=== PATIENT | female | born 1995 | race Hispanic/Latino ===

== ENCOUNTER 2019-12-14 11:34 | Observation (INO) | payer OTHER, MEDICAID | END 2019-12-14 12:53 | disposition home or self-care (01) | LOC: EDH 11:34 → LDH 11:35 | PROVIDERS: ADMIT Obstetrics & Gynecology; ATTEND Obstetrics & Gynecology | DX: O26.893 Other specified pregnancy related conditions, third trimester (principal); Z3A.33 33 weeks gestation of pregnancy | CPT/HCPCS: 99284; G0378 ==

== ENCOUNTER 2020-01-23 16:28 | Inpatient (IN) | payer OTHER, MEDICAID ==
[~2020-01-23] VITALS: Ht 167.6 cm; Wt 124.7 kg
[2020-01-23] MEDS ORDERED: LACTATED RINGERS 1000ML 1,000 ML IV PRN (17:59)
[2020-01-23] MEDS ORDERED: NALOXONE HCL 0.4 MG/1 ML ML IV PRN (18:00)
[2020-01-23] MEDS ORDERED: LACTATED RINGERS 500 ML 500 ML IV PRN (18:00)
[2020-01-23] MEDS ORDERED: EPHEDRINE SULFATE 50 MG/ML AMPULE IVP PRN (18:00)
[2020-01-23] MEDS ORDERED: AMPICILLIN 2GM+NS 100ML 100 ML IV SCH (18:00)
[2020-01-23] MEDS ORDERED: ROPIVACAINE 0.2% 100ML VIAL 100 ML EP SCH (18:00)
[2020-01-23 18:48] LABS: HEMATOCRIT 37.9 % (36-48); MEAN CORPUSCULAR HEMOGLOBIN 26.2 pg (27.0-33.0); MEAN CORPUSCULAR HGB CONC 32.2 g/dL (32.0-36.0); MEAN CORPUSCULAR VOLUME 81.3 fL (79-99); RED BLOOD CELL COUNT(AUTO) 4.66 MIL/uL (4.00-5.50); RED CELL DISTRIBUTION WIDTH 17.2 % (11.0-15.5); WHITE BLOOD COUNT (AUTO) 11.8 K/uL (4.8-10.8)
[2020-01-23 18:49] LABS: BILIRUBIN,URINE NEGATIVE (NEGATIVE); COLOR,URINE YELLOW (YELLOW); GLUCOSE, URINE (UA) NEGATIVE (NEGATIVE); KETONES,URINE NEGATIVE (NEGATIVE); LEUKOCYTE ESTERASE ,URINE LARGE (NEGATIVE); NITRATE,URINE NEGATIVE (NEGATIVE); OCCULT BLOOD,URINE LARGE (NEGATIVE); PH,URINE 7.5 (5.0-8.0); PROTEIN,URINE NEGATIVE (NEGATIVE); UROBILINOGEN,URINE 0.2 mg/dL (0.2-1.0)
[2020-01-23 18:53] LABS: APPEARANCE,URINE HAZY (CLEAR)
[2020-01-23 19:05] LABS: BACTERIA,URINE Moderate /HPF (None Seen); MUCUS,URINE Few LPF (None Seen); SQUAMOUS EPITHELIAL CELL,UR Few /HPF (0-2); WBC,URINE 51-100 /HPF (0-1)
[2020-01-23] MEDS ORDERED: AMPICILLIN 2GM+NS 100ML 100 ML IV ONE (19:41)
[2020-01-23] MEDS: MISOPROSTOL 25 MCG TABLET VG SCH (19:45)
[2020-01-24] MEDS: MISOPROSTOL 25 MCG TABLET VG SCH ×3 (02:00→23:53)
[2020-01-24] MEDS: AMPICILLIN 1GM+NS 50ML 50 ML IV SCH ×5 (03:52→20:49)
[2020-01-24] MEDS: BUTORPHANOL TARTRATE 2 MG/ML IVP PRN ×2 (05:27→09:40)
[2020-01-24] MEDS ORDERED: OXYTOCIN 10 USP UNITS/ML 20 UNIT in LACTATED RINGERS 1000ML 1,000 ML IV SCH (07:00)
[2020-01-24] MEDS ORDERED: OXYTOCIN-LR 20 UNITS/1000 ML 1,000 ML IV ONE (07:24)
[2020-01-24] MEDS ORDERED: CALDOLOR 800MG+NS 250ML 250 ML IV PRN (13:30)
[2020-01-24] MEDS ORDERED: CEFAZOLIN SODIUM 1 GM VIAL IVP PRN (13:30)
[2020-01-24] MEDS ORDERED: LIDOCAINE HCL-MPF 2% 10ML AMP IJ ONE (14:28)
[2020-01-24] MEDS ORDERED: DEXAMETHASONE SOD PHOSPHATE 10MG/ML 1ML VIAL ONE (14:28)
[2020-01-24] MEDS ORDERED: EPHEDRINE SULFATE 50 MG/ML AMPULE ONE (14:28)
[2020-01-24] MEDS ORDERED: DURAMORPH PF1 MG/ML 10ML AMP IV ONE (14:28)
[2020-01-24] MEDS ORDERED: ONDANSETRON HCL 4 MG/2 ML VIAL ONE (14:28)
[2020-01-24] MEDS ORDERED: PHENYLEPHRINE HCL 10 MG/ML 1ML VIAL IV ONE (14:28)
[2020-01-24] MEDS ORDERED: OXYTOCIN 10 UNIT/1ML 10ML VIAL ONE (14:29)
[2020-01-24] MEDS ORDERED: CEFAZOLIN SODIUM 1 GM VIAL IVP ONE (14:40)
[2020-01-24] MEDS ORDERED: FENTANYL CITRATE PF 50 MCG/1 ML 2ML VIAL ONE ×2 (14:46→14:49)
[2020-01-24] MEDS ORDERED: PROPOFOL 10 MG/ML 20ML VIAL IV ONE (14:53)
[2020-01-24] MEDS ORDERED: MIDAZOLAM HCL 1 MG/ML 2ML VIAL ONE (15:00)
[2020-01-24] MEDS ORDERED: IBUPROFEN 600 MG TABLET PO PRN (15:30)
[2020-01-24] MEDS ORDERED: DIPH,PERTUSS(ACELL),TET VAC/PF 0.5 ML VIAL IM SCH (15:30)
[2020-01-24] MEDS ORDERED: HYDROCODONE/ACETAMINOPHEN 5/325 MG TAB PO PRN (15:30)
[2020-01-24] MEDS ORDERED: OXYTOCIN-LR 20 UNITS/1000 ML 1,000 ML IV PRN (15:30)
[2020-01-24] MEDS ORDERED: PROMETHAZINE HCL 25 MG/ML 1ML AMPULE IM PRN (15:30)
[2020-01-24] MEDS ORDERED: LANOLIN 30GM OINTMENT TP PRN (15:30)
[2020-01-24] MEDS ORDERED: ACETAMINOPHEN-CODEINE 300/30MG TAB PO PRN (15:30)
[2020-01-24] MEDS ORDERED: MEASLES/MUMPS/RUBELLA VACCINE, LIVE 0.5 ML/VIAL SQ SCH (15:30)
[2020-01-24] MEDS ORDERED: MEPERIDINE-PF 75 MG/ML SYG IM PRN (15:30)
[2020-01-24] MEDS ORDERED: DEXTROSE 5 %-0.45 % NACL 1,000 ML IV PRN (15:30)
[2020-01-24] MEDS ORDERED: SIMETHICONE 80 MG TAB.CHEW PO PRN (15:30)
[2020-01-24] MEDS ORDERED: DIPHENHYDRAMINE HCL 25 MG CAPSULE PO PRN (15:30)
[2020-01-24] MEDS ORDERED: SODIUM CHLORIDE 0.9% 10 ML VIAL IVP PRN (15:30)
[2020-01-24] MEDS ORDERED: BISACODYL 10 MG SUPP.RECT RC PRN (15:30)
[2020-01-24] MEDS ORDERED: ACETAMINOPHEN EXTRA STRENGTH 500 MG TABLET PO PRN (15:30)
[2020-01-24 16:42] VITALS: BP 118/73
[2020-01-24] MEDS ORDERED: LABE100T5 PO (16:54)
[2020-01-24] MEDS ORDERED: PREN-154 PO (16:54)
[2020-01-24] MEDS: DOCUSATE SODIUM 100 MG CAP PO SCH (20:16)
--- NOTE | 2020-01-24 20:16 | NUR ---
pt. med. for c/o itching with benadryl, no redness or rashes noted. Yesi care done.
[2020-01-24 20:20] VITALS: BP 130/68
[2020-01-24] MEDS: IBUPROFEN 800 MG TAB PO SCH ×2 (20:48→20:50)
--- NOTE | 2020-01-24 21:00 | NUR ---
pt.enied itching at this time.
[2020-01-24 23:15] VITALS: BP 108/62
[2020-01-24] MEDS: CALDOLOR 800MG+NS 250ML 250 ML IV SCH (23:41)
[2020-01-25 04:07] VITALS: BP 107/55
--- NOTE | 2020-01-25 06:15 | NUR ---
epidural infusion finished and discontinued. Epidural catheter tip intact, no bruising to site, no drainage noted. pt c/o slight numbness to left leg; camp cath emptied and left intact. Yesi care done.
[2020-01-25] MEDS: CALDOLOR 800MG+NS 250ML 250 ML IV SCH (07:05)
[2020-01-25 07:40] VITALS: BP 104/68
[2020-01-25 07:53] LABS: HEMATOCRIT 31.7 % (36-48); MEAN CORPUSCULAR HEMOGLOBIN 26.1 pg (27.0-33.0); MEAN CORPUSCULAR HGB CONC 31.9 g/dL (32.0-36.0); MEAN CORPUSCULAR VOLUME 81.9 fL (79-99); RED BLOOD CELL COUNT(AUTO) 3.87 MIL/uL (4.00-5.50); WHITE BLOOD COUNT (AUTO) 16.9 K/uL (4.8-10.8)
[2020-01-25] MEDS: DOCUSATE SODIUM 100 MG CAP PO SCH (08:30)
[2020-01-25] MEDS ORDERED: LIDOCAINE 5% TOPICAL PATCH TP SCH (09:00)
--- NOTE | 2020-01-25 10:00 | NUR ---
REYES CATHETER REMOVED AND PT ASSISTED OOB TO CHAIR. PT HAD SLIGHT DIZZINESS BUT WAS ABLE TO TOLERATE, AND STATED THAT DIZZINESS PASSED. PT INSTRUCTED ON POC, TO AMBULATE IN HALLWAY 4 TIMES. VERBALIZED UNDERSTANDING. STATED WOULD CALL IF NEEDING ASSISTANCE.
[2020-01-25 10:16] LABS: HEPATITIS Bs ANTIGEN SCREEN P Negative (Negative)
[2020-01-25] MEDS: IBUPROFEN 800 MG TAB PO SCH (15:37)
--- NOTE | 2020-01-25 16:00 | NUR ---
DISCHARGE PT LEFT UNIT VIA WHEELCHAIR, WITH BABY IN ARMS, ACCOMPANIED BY FAMILY. DENIED PAIN AND HAD NO COMPLAINTS. BABY STRAPPED IN CAR SEAT. PT AND BABY TRANSPORTED BY PERSONAL VEHICLE.
== END 2020-01-25 16:00 | disposition home or self-care (01) | DRG 788 ==
LOC: LDH 16:28 → WSH 01-24 16:40 → PREOBSVTOIN 01-30 16:27
PROVIDERS: ADMIT Obstetrics & Gynecology; ATTEND Obstetrics & Gynecology
PROC: 10D00Z1 Extraction of Products of Conception, Low, Open Approach (ICD-10-PCS; principal; 2020-01-24 14:28)
DX: O76 Abnormality in fetal heart rate and rhythm complicating labor and delivery (principal); O99.214 Obesity complicating childbirth; O69.81X0 Labor and delivery complicated by cord around neck, without compression, not applicable or unspecified; Z3A.39 39 weeks gestation of pregnancy; Z37.0 Single live birth; O16.4 Unspecified maternal hypertension, complicating childbirth; E66.01 Morbid (severe) obesity due to excess calories
CPT/HCPCS: 36415; 59510; 81001; 85027; 86592; 86850; 86900; 86901; 87088; 87340; 90715; A4314; A4344; G0378; J0290; J0595; J0690; J1100; J1741; J2175; J2250; J2274; J2370; J2405; J2550; J2590; J2704; J2795; J3010; J3490; J7120; Q0163

== ENCOUNTER 2024-02-14 21:12 | Emergency (ER) | payer BC, MEDICAID, OTHER ==
[~2024-02-14] VITALS: Ht 170.2 cm; Wt 110.7 kg
[~2024-02-14 21:12] MED LIST: PREN-154 PO
[2024-02-14 21:36] LABS: BASOPHILS # (AUTO) 0.04 K/uL (0.00-0.20); BASOPHILS % (AUTO) 0.4 % (0.0-5.0); EOSINOPHILS # (AUTO) 0.12 K/uL (0.00-0.70); EOSINOPHILS % (AUTO) 1.2 % (0.0-8.0); HEMATOCRIT 41.9 % (36-48); IMMATURE GRANULOCYTE ABSOLUTE 0.02 K/uL (0-1); LYMPHOCYTES # (AUTO) 4.1 K/uL (1.0-4.8); LYMPHOCYTES % (AUTO) 41.8 % (21.0-51.0); MEAN CORPUSCULAR HGB CONC 31.7 g/dL (32.0-36.0); MEAN CORPUSCULAR VOLUME 85.2 fL (79-99); MONOCYTES # (AUTO) 0.7 K/uL (0.1-1.0); MONOCYTES % (AUTO) 6.7 % (3.0-13.0); NEUTROPHILS # (AUTO) 4.8 K/uL (1.8-7.7); NEUTROPHILS % (AUTO) 49.7 % (40.0-77.0); PLATELET COUNT (AUTO) 283 K/uL (130-400); RED BLOOD CELL COUNT(AUTO) 4.92 MIL/uL (4.00-5.50); RED CELL DISTRIBUTION WIDTH 13.9 % (11.0-15.5); WHITE BLOOD COUNT (AUTO) 9.7 K/uL (4.8-10.8)
[2024-02-14 21:45] LABS: CREATININE 0.7 mg/dL (0.5-1.0); POTASSIUM 3.6 mmol/L (3.5-5.1)
[2024-02-14 21:49] LABS: ALBUMIN 3.6 g/dL (3.5-5.0); BILIRUBIN,TOTAL 0.3 mg/dL (0.2-1.0); TOTAL PROTEIN, SERUM 8.2 g/dL (6.0-8.3)
[2024-02-14 21:56] LABS: APPEARANCE,URINE CLEAR (CLEAR); BILIRUBIN,URINE NEGATIVE (NEGATIVE); COLOR,URINE COLORLESS (YELLOW); GLUCOSE, URINE (UA) NEGATIVE (NEGATIVE); KETONES,URINE NEGATIVE (NEGATIVE); LEUKOCYTE ESTERASE ,URINE NEGATIVE Leu/uL (NEGATIVE); NITRATE,URINE NEGATIVE (NEGATIVE); OCCULT BLOOD,URINE NEGATIVE (NEGATIVE); PH,URINE 6.5 (5.0-8.0); PROTEIN,URINE NEGATIVE (NEGATIVE); UROBILINOGEN,URINE 0.2 mg/dL (0.2-1.0)
[2024-02-14 21:58] LABS: ADD UA MICROSCOPIC YES
[2024-02-14 22:00] LABS: RBC,URINE 0-1 /HPF (0-1); SQUAMOUS EPITHELIAL CELL,UR FEW /HPF (0-2); WBC,URINE 0-1 /HPF (0-1)
[2024-02-14] MEDS ORDERED: ONDA-243 PO (23:02)
[2024-02-14] MEDS ORDERED: FAMO-136 PO (23:02)
[2024-02-14] MEDS: MAG/ALUM/SIMETH 30 ML UDCUP PO ONE (23:28)
[2024-02-14] MEDS: LIDOCAINE HCL 2% VISCOUS 15 ML UDCUP PO ONE (23:28)
[2024-02-14] MEDS: FAMOTIDINE 20MG TAB PO ONE (23:28)
[2024-02-14] MEDS: ONDANSETRON ODT 4MG TAB SL ONE (23:29)
[2024-02-14 23:40] VITALS: BP 140/92; PULSE 68; RESP 18; O2SAT 99
== END 2024-02-14 23:44 | disposition home or self-care (01) ==
LOC: EDH 21:12
DX: R10.13 Epigastric pain (principal); K90.41 Non-celiac gluten sensitivity; Z90.49 Acquired absence of other specified parts of digestive tract
CPT/HCPCS: 36415; 80053; 81001; 83690; 84703; 85025

== ENCOUNTER 2024-08-17 19:11 | Emergency (ER) | payer BC ==
[~2024-08-17] VITALS: Ht 170.2 cm; Wt 109.8 kg
[~2024-08-17 19:11] MED LIST changes: +FAMO-136 PO; +ONDA-243 PO
[2024-08-17] MEDS ORDERED: OSEL75 PO (19:31)
--- NOTE | 2024-08-17 19:31 | ERN ---
General Chief Complaint: Multiple Complaints Stated Complaint: MULTIPLE COMPLAINTS Source: patient History of Present Illness Initial Comments Patient is a 28-year-old female coming in to be evaluated for URI symptoms. Per patient she was exposed to influenza a by her and son. She states he has been having a cough and some congestion. No shortness of breath. Allergies: Coded Allergies: No Known Drug Allergies (Unverified Allergy, Unknown, 01/23/20) Home Meds Active Scripts Famotidine (Pepcid) 20 Mg Tablet, 20 MG PO BID for 7 Days, #14 TAB Prov:YOVANY SANCHEZ 02/14/24 Ondansetron (Ondansetron Odt) 4 Mg Tab.rapdis, 4 MG PO BID for 7 Days, #14 TAB Prov:YOVANY SANCHEZ 02/14/24 Reported Medications Vits #93/Iron Fum/FA ( Formula Tablet) 1 Each Tablet, 1 EACH PO DAILY, TAB 01/24/20 Past Medical History Past Medical History: No Pertinent History Medical History Other: HX OF PCOS Past Surgical History: None Surgical History Other: HERNIA REPAIR Female( History) LMP: Jul 05, 2024 ROS Dictation CONSTITUTIONAL: chills, fever, no weakness, no diaphoresis, malaise. HEAD/FACE: No signs of trauma. EENT: No eye pain, no blurred vision, no tearing, no double vision, no ear pain, no ear discharge, no nose pain, no nasal congestion, no throat pain, no throat swelling, no mouth pain. RESPIRATORY: No cough, no orthopnea, no SOB, no stridor, no wheezing. CARDIOVASCULAR: No chest pain, no edema, no palpitations, no syncope. GASTROINTESTINAL/ABDOMINAL: No abdominal pain, no constipation, no diarrhea, no nausea, no vomiting. GENITOURINARY: No abnormal discharge, no dysuria, no frequent urination, no hematuria. No complaints of pain in the genitals. MUSCULOSKELETAL: No back pain, no gout, no joint pain, no joint swelling, no muscle pain, no muscle stiffness, no neck pain. INTEGUMENTARY: No change in color, no change in hair/nails, no dryness, no lesion, no lumps, no rash. NEUROLOGICAL/PSYCH: No anxiety, not depressed, no emotional problem, no headache, no numbness, no pre-existing deficit, no history of seizures, no tremors, no weakness. HEMATOLOGIC/LYMPHATIC: Not anemic, no history of blood clots, no apparent bleeding, no bruising, glands not swollen. All Systems Negative, Except as Noted. Physical Exam Physical Exam Dictation VITAL SIGNS: Reviewed. GENERAL APPEARANCE: Alert, oriented x3, no acute distress, obese. HEAD AND FACE: Non-traumatic. EYES: PERRL, pink conjunctivas, eyelid no trauma, anterior chamber clear. EARS: Pinnas intact and no signs of trauma or erythema. Ear canals clear and no discharge. TMs no erythema. NOSE: No discharge, no bleeding. OROPHARYNX: Mouth normal, teeth no caries, tongue pink. Pharynx clear, no erythema. Tonsils no exudates, no abscesses noted. Mucous membrane moist. NECK: Supple, non-tender, no thyromegaly, no masses, no JVD, no bruits. BREAST: Deferred. CHEST: No tenderness, no crepitus, no paradoxical movement, no retractions. LUNGS: Clear, well-ventilated, symmetric, no rales, no wheezing, no rhonchi, no stridor, good breath sounds bilaterally. HEART: Regular rate, regular rhythm, no murmur, no gallops. VASCULAR: No peripheral edema. ABDOMEN: Soft, positive bowel sounds, nondistended, no guarding, nontender, no rebound, no masses no hepatomegaly, no splenomegaly, no Jarrett's sign, no hernias. RECTAL: Deferred. GENITAL: Deferred. NEUROLOGICAL: Normal speech, gross motor function intact, gross sensory function intact. MUSCULOSKELETAL: Neck nontender, full range of motion, back nontender, full range of motion. EXTREMITIES: Nontender, full range of motion. SKIN: Color pink, dry, no turgor, no rash, no lacerations, no abrasions, no con tusions. LYMPHATICS: Deferred. Results Laboratory and Microbiology Labs Reviewed?: Yes MDM MDM: Differential diagnosis: Low has a a, flu, URI, influenza exposure Patient is a 28-year-old female coming in to be evaluated for URI symptoms. Per patient she was exposed to influenza a by her and son. Due to exposure patient will be treated for influenza A. DX & DISP Disposition: Discharge Departure Impression: Primary Impression: Exposure to influenza Condition: Stable Scripts Oseltamivir Phosphate (Tamiflu) 75 Mg Cap 1 CAP PO BID for 5 Days, #10 CAP 0 Refills Prov: JENNY BELLO MD 08/17/24 Additional Instructions: FOLLOW-UP WITH PRIMARY CARE PROVIDER IN 1 TO 2 DAYS. TAKE MEDICATIONS DIRECTED HERE IN THE EMERGENCY ROOM. OKAY TO CONTINUE HOME MEDICATIONS UNLESS OTHERWISE DISCUSSED DURING YOUR VISIT IN THE EMERGENCY ROOM TODAY. RETURN TO YOUR NEAREST EMERGENCY ROOM IF SYMPTOMS WORSEN OR IF THERE IS NO IMPROVEMENT. CALL 911 IF YOU NEED IMMEDIATE ASSISTANCE. TAKE TYLENOL [id number] NEEDED AND IF NO CONTRAINDICATIONS ARE PRESENT. INCREASE ORAL HYDRATION. A WOUND CULTURE OR URINE CULTURE WAS ORDERED HERE IN THE EMERGENCY ROOM DEPARTMENT PLEASE FOLLOW-UP WITH PRIMARY CARE PROVIDER AND ADVISE THEM TO GET REPEAT PORTS FROM OUR FACILITY. IF YOU HAD ANY JOAQUIM WRAP/SPLINTS THAT WERE APPLIED HERE, PLEASE DO NOT REMOVE THEM UNTIL YOU SEE YOUR PRIMARY CARE OR SPECIALTY. Referrals: Referrals: PAVITHRA ROJAS (PCP) Time of Disposition: 19:30 JENNY BELLO MD Aug 17, 2024 19:31
[2024-08-17 20:06] VITALS: TEMP 100.3
[2024-08-17] MEDS: acetaMINOPHEN 500 MG TABLET PO ONE (20:06)
[2024-08-17 20:09] VITALS: BP 133/79; PULSE 98; RESP 18; TEMP 99.9; O2SAT 99
== END 2024-08-17 20:10 | disposition home or self-care (01) ==
LOC: EDH 19:11
DX: R05.9 Cough, unspecified (principal); R09.81 Nasal congestion; Z20.828 Contact with and (suspected) exposure to other viral communicable diseases; Z98.890 Other specified postprocedural states
CPT/HCPCS: 99283